=== PATIENT | male | born 1950 | race Caucasian/White ===

== ENCOUNTER → 2017-03-25 | Outpatient (CLI) | payer MEDICARE, BC ==
--- NOTE | 2017-03-25 09:50 | RADRPT ---
PROCEDURE: Left knee radiographs. CLINICAL INDICATION: Left knee pain. TECHNIQUE: Four views. Weight bearing. Frontal, lateral, oblique, and patellar view. COMPARISON: No prior studies are available for comparison. FINDINGS: There is no fracture or dislocation. Vascular calcifications are present consistent with atherosclerosis. There are degenerative changes with osteophytes arising from all 3 joint compartment margins. There is medial joint compartment narrowing There is no lytic or blastic lesion. There is no radiopaque foreign body. IMPRESSION: 1. Atherosclerosis. 2. Moderate degenerative change of the left knee. RPTAT: QQ .Rehan Rich MD, MD Date Time Electronically viewed and signed by .Rehan Rich MD, MD on 03/25/2017 09:50 .R/
--- NOTE | 2017-03-25 09:51 | RADRPT ---
PROCEDURE: XR Pelvis and left hip. CLINICAL INDICATION: Pelvic pain. TECHNIQUE: 2 views. AP pelvis and lateral left hip. COMPARISON: No prior studies are available for comparison. FINDINGS: There is no fracture or dislocation. There is no lytic or blastic lesion. Articular surfaces are intact. The sacroiliac joints are grossly unremarkable. Vascular calcifications are present consistent with atherosclerosis. IMPRESSION: 1. Atherosclerosis. 2. Otherwise unremarkable images of the pelvis and left hip. RPTAT: QQ .Rehan Rich MD, Date Time Electronically viewed and signed by .Rehan Rich MD, on 03/25/2017 09:51 .R/
== END | disposition home or self-care (01) ==
LOC: HKI 09:05
PROVIDERS: ATTEND Orthopaedic Surgery
DX: M17.12 Unilateral primary osteoarthritis, left knee (principal); M16.12 Unilateral primary osteoarthritis, left hip; M51.16 Intervertebral disc disorders with radiculopathy, lumbar region
CPT/HCPCS: 20610; 72170; 73564; G0463; J1030